=== PATIENT | female | born 1950 | race Caucasian/White ===

== ENCOUNTER 2019-07-10 13:56 | Outpatient (REF) | payer OTHER, SELFPAY ==
[2019-07-11 14:54] LABS: Abs Immature Grans 0.07 k/cumm (0.0-0.09); Absolute Basophil Count 0.05 k/cumm (0.0-0.2); Absolute Eosinophil Count 0.35 k/cumm (0.0-0.7); Absolute Lymphocyte Count 1.53 k/cumm (1.2-3.4); Absolute Monocyte Count 0.77 k/cumm (0.11-0.7); Absolute Neutrophil Count 8.57 k/cumm (1.2-6.7); Basophils % 0.4; Eosinophils % 3.1; HCT 49.5 % (36.0-46.0); HGB 15.9 g/dL (12.0-15.5); Immature Grans % 0.6 %; Lymphocytes % 13.5; Mean Corp. HGB Concentration 32.1 g/dL (32.0-36.0); Mean Corpuscular Hemoglobin 29.6 pg (27.0-33.0); Mean Corpuscular Volume 92.2 fL (80-95); Monocytes % 6.8; Neutrophils % 75.6; Platelet Count 266 x1000/uL (130-400); RBC 5.37 m/cumm (4.00-5.20); RBC Distribution Width 16.9 % (11.7-14.6); White Blood Cell Count 11.33 k/cumm (4.4-10.8)
[2019-07-11 15:03] LABS: Anion Gap 7.9 mmol/L (3-11); BUN 21 mg/dL (7-18); CO2 28.1 mmol/L (21.0-32.0); CREATININE 1.21 mg/dL (0.55-1.02); Chloride 100 mmol/L (98-107); Estimated GFR 44.12 (mL/min/1.73m2); Glucose 129 mg/dL (74-106); Potassium 4.2 mmol/L (3.5-5.1); Sodium 136 mmol/L (136-145)
[2019-07-11 15:24] LABS: INR 2.8 (0.9-1.1); Prothrombin Time 27.2 sec (9.3-11.0)
== END 2019-07-10 14:16 ==
LOC: LBN 13:56
PROVIDERS: PCP Student in an Organized Health Care Education/Training Program; Visit Provider Internal Medicine
DX: I26.09 Other pulmonary embolism with acute cor pulmonale (principal); J96.01 Acute respiratory failure with hypoxia; N17.9 Acute kidney failure, unspecified; Z79.01 Long term (current) use of anticoagulants
CPT/HCPCS: 80048; 85025; 85610

== ENCOUNTER 2019-07-14 15:35 | Outpatient (REF) | payer OTHER, SELFPAY ==
[2019-07-14 16:07] LABS: Abs Immature Grans 0.05 k/cumm (0.0-0.09); Absolute Basophil Count 0.03 k/cumm (0.0-0.2); Absolute Lymphocyte Count 1.12 k/cumm (1.2-3.4); Absolute Monocyte Count 0.63 k/cumm (0.11-0.7); Absolute Neutrophil Count 7.12 k/cumm (1.2-6.7); Basophils % 0.3; Eosinophils % 4.3; HCT 47.2 % (36.0-46.0); HGB 15.6 g/dL (12.0-15.5); Immature Grans % 0.5 %; Mean Corp. HGB Concentration 33.1 g/dL (32.0-36.0); Mean Corpuscular Hemoglobin 29.9 pg (27.0-33.0); Mean Corpuscular Volume 90.4 fL (80-95); Mean Platelet Volume 10.1 fL (8.0-11.0); Monocytes % 6.7; Neutrophils % 76.2; Platelet Count 279 x1000/uL (130-400); RBC 5.22 m/cumm (4.00-5.20); RBC Distribution Width 16.3 % (11.7-14.6); White Blood Cell Count 9.35 k/cumm (4.4-10.8)
[2019-07-14 16:17] LABS: INR 3.6 (0.9-1.1); Prothrombin Time 34.8 sec (9.3-11.0)
[2019-07-14 16:44] LABS: ALT 54 U/L (14-59); AST 27 U/L (15-37); Albumin 3.4 g/dL (3.4-5.0); Alkaline Phosphatase 60 U/L (46-116); Anion Gap 8.1 mmol/L (3-11); BUN 18 mg/dL (7-18); Bilirubin, Total 0.3 mg/dL (0.2-1.0); CO2 28.9 mmol/L (21.0-32.0); CREATININE 1.15 mg/dL (0.55-1.02); Calcium 8.9 mg/dL (8.5-10.1); Chloride 99 mmol/L (98-107); Estimated GFR 46.79 (mL/min/1.73m2); Glucose 143 mg/dL (74-106); Potassium 4.1 mmol/L (3.5-5.1); Sodium 136 mmol/L (136-145); Total Protein 6.9 g/dL (6.4-8.2)
== END 2019-07-14 15:55 ==
LOC: LBN 15:35
PROVIDERS: PCP Student in an Organized Health Care Education/Training Program; Visit Provider Student in an Organized Health Care Education/Training Program
DX: N17.9 Acute kidney failure, unspecified (principal); E87.1 Hypo-osmolality and hyponatremia; Z79.01 Long term (current) use of anticoagulants
CPT/HCPCS: 80053; 85025; 85610

== ENCOUNTER 2020-09-15 20:11 | Outpatient (REF) | payer OTHER, SELFPAY ==
[2020-09-15 16:33] LABS: Abs Immature Grans 0.17 10^3/uL (0.0-0.06); Absolute Eosinophil Count 0.49 10^3/uL (0.0-0.7); Absolute Lymphocyte Count 1.19 10^3/uL (1.2-3.4); Basophils % 0.7; Eosinophils % 4.1; HCT 43.5 % (36.0-46.0); HGB 13.4 g/dL (11.2-15.7); Immature Grans % 1.4; Lymphocytes % 9.9; MCH 28.4 pg (27.0-33.0); MCHC 30.8 % (32.0-36.0); MCV 92.2 fL (80-95); MPV 10.4 fL (8.0-11.0); Monocytes % 5.2; Neutrophils % 78.7; Nucleated RBC 0 %; Platelet Count 348 10^3/uL (130-400); RBC 4.72 10^6/uL (3.93-5.22); RDW 16.5 % (11.7-14.6); WBC 12.01 10^3/uL (4.4-10.8)
[2020-09-15 16:34] LABS: Absolute Basophil Count 0.08 10^3/uL (0.0-0.2); Absolute Monocyte Count 0.62 10^3/uL (0.1-0.8); Absolute Neutrophil Count 9.45 10^3/uL (1.2-6.7)
[2020-09-15 16:35] LABS: INR 2.7 (0.9-1.1); Prothrombin Time 26.6 sec (9.3-11.0)
== END 2020-09-15 20:12 | disposition home or self-care (01) ==
LOC: NCHCN 20:11
PROVIDERS: PCP Student in an Organized Health Care Education/Training Program; Visit Provider Nurse Practitioner Family
DX: I26.09 Other pulmonary embolism with acute cor pulmonale (principal); Z79.01 Long term (current) use of anticoagulants
CPT/HCPCS: 85025; 85610

== ENCOUNTER 2020-11-10 17:18 | Outpatient (REF) | payer OTHER, SELFPAY ==
[2020-11-10 22:06] LABS: HCT 43.2 % (36.0-46.0); HGB 14.1 g/dL (11.2-15.7); MCH 28.9 pg (27.0-33.0); MCHC 32.6 % (32.0-36.0); MCV 88.5 fL (80-95); MPV 10.2 fL (8.0-11.0); Platelet Count 320 10^3/uL (130-400); RBC 4.88 10^6/uL (3.93-5.22); RDW 16.5 % (11.7-14.6); RDW-SD 53.4 fL; WBC 12.12 10^3/uL (4.4-10.8)
[2020-11-10 22:18] LABS: INR 2.6 (0.9-1.1); Prothrombin Time 25.2 sec (9.3-11.0)
[2020-11-10 22:24] LABS: Anion Gap 8.7 mmol/L (3-11); BUN 22 mg/dL (7-18); CO2 29.3 mmol/L (21.0-32.0); CREATININE 1.4 mg/dL (0.55-1.02); Calcium 9.2 mg/dL (8.5-10.1); Chloride 100 mmol/L (98-107); Estimated GFR 37.18 (mL/min/1.73m2); Glucose 162 mg/dL (74-106); Potassium 4.3 mmol/L (3.5-5.1); Sodium 138 mmol/L (136-145)
== END 2020-11-10 17:19 | disposition home or self-care (01) ==
LOC: LBN 17:18
PROVIDERS: PCP Student in an Organized Health Care Education/Training Program; Visit Provider Internal Medicine
DX: Z79.01 Long term (current) use of anticoagulants (principal)
CPT/HCPCS: 80051; 82947; 84520; 85027; 82310; 82565; 85610

== ENCOUNTER 2021-02-23 11:19 | Outpatient (REF) | payer OTHER, SELFPAY ==
[2021-02-23 15:00] LABS: INR 2.3 (0.9-1.1); Prothrombin Time 22.8 sec (9.3-11.0)
== END 2021-02-23 11:20 | disposition home or self-care (01) ==
LOC: LBN 11:19
PROVIDERS: PCP Student in an Organized Health Care Education/Training Program; Visit Provider Internal Medicine
DX: Z79.01 Long term (current) use of anticoagulants (principal)
CPT/HCPCS: 85610

== ENCOUNTER 2021-03-23 14:42 | Outpatient (REF) | payer OTHER, SELFPAY ==
[2021-03-23 15:18] LABS: INR 2.5 (0.9-1.1); Prothrombin Time 24.8 sec (9.3-11.0)
== END 2021-03-23 14:43 | disposition home or self-care (01) ==
LOC: LBN 14:42
PROVIDERS: PCP Student in an Organized Health Care Education/Training Program; Visit Provider Physician Assistant Medical
DX: Z79.01 Long term (current) use of anticoagulants (principal)
CPT/HCPCS: 85610

== ENCOUNTER 2021-05-18 18:05 | Outpatient (REF) | payer OTHER, SELFPAY ==
[2021-05-18 15:51] LABS: INR 2.1 (0.9-1.1); Prothrombin Time 20.4 sec (9.3-11.0)
== END 2021-05-18 18:06 | disposition home or self-care (01) ==
LOC: LBN 18:05
PROVIDERS: PCP Student in an Organized Health Care Education/Training Program; Visit Provider Physician Assistant Medical
DX: Z79.01 Long term (current) use of anticoagulants (principal)
CPT/HCPCS: 85610

== ENCOUNTER 2021-06-01 15:23 | Outpatient (REF) | payer OTHER, SELFPAY ==
[2021-06-01 16:19] LABS: INR 2.8 (0.9-1.1); Prothrombin Time 27.1 sec (9.3-11.0)
== END 2021-06-01 15:24 | disposition home or self-care (01) ==
LOC: LBN 15:23
PROVIDERS: PCP Student in an Organized Health Care Education/Training Program; Visit Provider Physician Assistant Medical
DX: Z79.01 Long term (current) use of anticoagulants (principal); I26.99 Other pulmonary embolism without acute cor pulmonale
CPT/HCPCS: 85610

== ENCOUNTER 2021-07-04 15:21 | Outpatient (REF) | payer OTHER, SELFPAY ==
[2021-07-04 16:42] LABS: INR 2.5 (0.9-1.1)
== END 2021-07-04 15:22 | disposition home or self-care (01) ==
LOC: LBN 15:21
PROVIDERS: PCP Student in an Organized Health Care Education/Training Program; Visit Provider Physician Assistant Medical
DX: I26.99 Other pulmonary embolism without acute cor pulmonale (principal); Z79.01 Long term (current) use of anticoagulants
CPT/HCPCS: 85610

== ENCOUNTER 2021-08-03 20:03 | Outpatient (REF) | payer OTHER, SELFPAY ==
[2021-08-03 21:38] LABS: BUN 47 mg/dL (7-18); CREATININE 1.6 mg/dL (0.55-1.02); Calcium 8.6 mg/dL (8.5-10.1); Chloride 98 mmol/L (98-107); Estimated GFR 31.78 (mL/min/1.73m2); Glucose 175 mg/dL (74-106); Potassium 4.8 mmol/L (3.5-5.1); Sodium 135 mmol/L (136-145)
== END 2021-08-03 20:04 | disposition home or self-care (01) ==
LOC: LBN 20:03
PROVIDERS: PCP Student in an Organized Health Care Education/Training Program; Visit Provider Nurse Practitioner
DX: I50.32 Chronic diastolic (congestive) heart failure (principal)
CPT/HCPCS: 80048

== ENCOUNTER 2021-09-07 15:58 | Outpatient (REF) | payer OTHER, MEDICARE, SELFPAY ==
[2021-09-07 16:44] LABS: Prothrombin Time 25.1 sec (9.3-11.0)
[2021-09-07 16:46] LABS: INR 2.6 (0.9-1.1)
== END 2021-09-07 15:59 | disposition home or self-care (01) ==
LOC: LBN 15:58
PROVIDERS: PCP Student in an Organized Health Care Education/Training Program; Visit Provider Physician Assistant Medical
DX: I26.99 Other pulmonary embolism without acute cor pulmonale (principal); Z79.01 Long term (current) use of anticoagulants
CPT/HCPCS: 85610

== ENCOUNTER 2023-05-31 10:30 | Emergency (ER) | payer OTHER, SELFPAY ==
[2023-05-31 10:36] VITALS: BP 150/69; PULSE 94; RESP 20; TEMP 36.9; O2SAT 95
--- NOTE | 2023-05-31 10:57 | ED.GENADUL_ITS ---
Discharge Plan Disposition Patient Disposition: Home Condition: Stable Discharge Details Clinical Impression: Paronychia of great toe of left foot Primary Care Provider: Danielle Felix ED Provider: Aster Krishnan Home Meds and New Rx's Prescriptions: New mupirocin 2 % ointment 1 applic topical BID Qty: 15 0RF Discharge Instructions Instructions: Paronychia (ED) Additional Instructions: Please call your auger mill operator at the [facility] for a follow up appointment. I encourage you to wash gently in warm water with hibiclens (chlorhexadine surgical wash) daily, then apply a thin layer of mupirocin ointment. Place a nonstick dressing between the first and second toes to gently cover the ingrown toenail. Let the toe be exposed to air to help with drying it out while resting, wearing a sock when getting up. Return to emergency care ([facility] if possible) for any concern of worsening infection such as toe swelling/redness, increasing pain, general malaise, or if you are very worried and need to be rechecked again immediately. Referrals: [facility] [Outside] HPI General Date/Time Provider Initiated Documentation: 05/31/23 10:31 . HPI Narrative: Jonh is a 73 year old male with history of T2DM, peripheral vascular disease, CKD, chronic respiratory failure on O2, and obesity who presents to the emergency dept for evaluation of infection to L great toenail. (caregiver) reports this was noted by home health nurse two days ago; says she did not notice it earlier because he wears socks all the time. has been soaking the foot in warm water and applying OTC antibacterial ointment. Jonh does have a auger mill operator at the [facility], missed his most recent appointment due to a head cold. This morning he was advised to come to the emergency department to have his toe checked out, usually they go to [facility] or [facility], they came to an [facility] today because they did not have the time to drive down to [place] today. Overall, Jonh has been feeling well. Denies fever/chills, fatigue/general malaise, pedal edema, redness to the toes. He did have some soreness to the right great toe as well which has since resolved. Blood sugars well controlled, 120s-130s. He is on chronic PCN daily to prevent infection (unknown if hx of MRSA or antibiotic resistent infection). Related Data Home Medications Medication Instructions Recorded Confirmed mupirocin 2 % topical ointment 1 applic topical BID #15 grams 05/31/23 Previous Rx's Medication Instructions Recorded mupirocin 2 % topical ointment 1 applic topical BID #15 grams 05/31/23 Allergies Allergy/AdvReac Type Severity Reaction Status Date / Time hydrogen peroxide Allergy Intermediate Hives Verified 05/31/23 10:52 General Stated Complaint: Cellulitis NIEVES: 3 Review of Systems Narrative: see HPI Exam Const General: cooperative, comfortable and no acute distress Nutritional Appearance: obese Extrem Ankle/foot/toe images: 2 1. paronychia Course Vital Signs Vital signs: Vital Signs Temperature 36.9 C 05/31/23 10:36 Pulse 94 H 05/31/23 10:36 Respiratory Rate 20 05/31/23 10:36 Blood Pressure 150/69 H 05/31/23 10:36 Pulse Oximetry 95 05/31/23 10:36 Temperature 36.9 C 05/31/23 10:36 Temperature Source Temporal Artery Scan 05/31/23 10:36 Pulse 94 H 05/31/23 10:36 Respiratory Rate 20 05/31/23 10:36 Respiratory Effort Short of Breath 05/31/23 10:39 Blood Pressure 150/69 H 05/31/23 10:36 Blood Pressure Position Sitting 05/31/23 10:36 Pulse Oximetry 95 05/31/23 10:36 Oxygen Delivery Method Nasal Cannula 05/31/23 10:36 Oxygen Flow Rate 3 05/31/23 10:36 Pain Level 0 05/31/23 10:36 Comment feet neuropathy at baseline 05/31/23 10:36 Medical Decision Making Jonh is a 73 year old male with history of T2DM, peripheral vascular disease, CKD, chronic respiratory failure on O2, and obesity who presents to the emergency dept for evaluation of infection to L great toenail. (caregiver) reports this was noted by home health nurse two days ago; says she did not notice it earlier because he wears socks all the time. has been soaking the foot in warm water and applying OTC antibacterial ointment. Jonh does have a auger mill operator at the [facility], missed his most recent appointment due to a head cold. This morning he was advised to come to the emergency department to have his toe checked out, usually they go to [facility] or [facility], they came to an [facility] today because they did not have the time to drive down to [place] today. Overall, Jonh has been feeling well. Denies fever/chills, fatigue/general malaise, pedal edema, redness to the toes. He did have some soreness to the right great toe as well which has since resolved. Blood sugars well controlled, 120s-130s. He is on chronic PCN daily to prevent infection (unknown if hx of MRSA or antibiotic resistent infection). Physical exam remarkable for + mild swelling and tenderness with scant purulent drainage to lateral nailfold of L great toenail. No obvious abscess. Overlying skin slightly macerated. Toenails are thick. No proximal swelling, redness, tenderness to toe. Pt is comfortable, in no acute distress. History and presentation consistent with paronychia. No concern for cellulitis, osteomyelitis, or systemic extension of infection at this time. As pt is followed by [facility] and all care is through the [facility], medical records not available for review. I did attempt to reach podiatry and home health doctor without success x 2. Discussed plan of care with patient and his , including importance of f/u with podiatry for management of diabetic toenails. 11:55: Discussed pt presentation and history with PCP, Jaclyn Miner NP. She is agreeable with plan of care. PCP will arrange for f/u in the next few days. Quality:SDOH Health Related Social Needs: 2 No Data to Display PFSH All Active Problems (Updated 05/31/23 @ 11:08 by Aster Reddy) Paronychia of great toe of left foot (Acute) Social History Smoking/Tobacco Use Status: Former Tobacco Use Smoking risk assessment performed?: Yes Alcohol Intake: current Alcohol Intake frequency: holidays/special occasions only Drug use: Never Substance use type: does not use Housing: house Do you feel safe at home: Yes Do you feel safe in your relationship?: Yes
[2023-05-31 12:20] VITALS: BP 180/87; PULSE 92; RESP 18; TEMP 36.4; O2SAT 97
== END 2023-05-31 12:23 | disposition home or self-care (01) ==
PROVIDERS: Emergency Provider Nurse Practitioner Family; PCP Student in an Organized Health Care Education/Training Program
DX: L03.032 Cellulitis of left toe (principal); R41.3 Other amnesia; J96.10 Chronic respiratory failure, unspecified whether with hypoxia or hypercapnia; I73.9 Peripheral vascular disease, unspecified; I12.9 Hypertensive chronic kidney disease with stage 1 through stage 4 chronic kidney disease, or unspecified chronic kidney disease; E11.22 Type 2 diabetes mellitus with diabetic chronic kidney disease; N18.9 Chronic kidney disease, unspecified; Z99.81 Dependence on supplemental oxygen; Z87.891 Personal history of nicotine dependence
CPT/HCPCS: 99283